=== PATIENT | male | born 1960 | race Hispanic/Latino ===

== ENCOUNTER 2022-12-12 08:51 | Day surgery (SDC) | payer BC ==
--- NOTE | 2022-12-08 17:35 | EKG ---
Test Date: 2022-12-08 Test Time: 11:25:38 Senior Compliance Analyst: FRANCIS MEASUREMENT RESULTS: Intervals: Rate: 62 [place]: 180 QRSD: 88 QT: 416 QTc: 422 [place]: P: 54 [place]: 180 QRS: -21 T: 23 INTERPRETIVE STATEMENTS: Sinus rhythm with occasional premature ventricular complexes Nonspecific ST abnormality Abnormal ECG No previous ECG available for comparison Electronically Signed On 12-08-22 17:34:46 CDT by Derik Moseley
[2022-12-12] MEDS ORDERED: OXYMETAZOLINE HCL 0.05% 15ML NAS ONE (09:04)
[2022-12-12] MEDS ORDERED: LIDOCAINE 2% MPF 5 ML VIAL ONE (09:14)
[2022-12-12] MEDS ORDERED: dexAMETHasone 10 MG/ML VIAL ONE (09:14)
[2022-12-12] MEDS ORDERED: KETOROLAC 30 MG/ML INJ ONE (09:14)
[2022-12-12] MEDS ORDERED: ONDANSETRON 4 MG/2 ML VIAL ONE (09:14)
[2022-12-12] MEDS ORDERED: propofoL 200 MG/20 ML VIAL IV ONE (09:14)
[2022-12-12] MEDS ORDERED: FENTANYL CITR 100 MCG/2 ML ONE ×2 (09:14→10:29)
[2022-12-12] MEDS ORDERED: MIDAZOLAM HCL 2 MG/2 ML INJ ONE (09:14)
[2022-12-12] MEDS ORDERED: NA CHLORIDE 0.9% 1,000 ML ONE ×2 (09:30→11:38)
[2022-12-12] MEDS ORDERED: NA CHLORIDE 0.9% 0 ML ONE (09:32)
[2022-12-12] MEDS ORDERED: LIDOCAINE 1% W/EPI 1:100,000 10 ML VIAL ONE (09:32)
[2022-12-12] MEDS: OXYMETAZOLINE HCL 0.05% 15ML NAS ONE ×3 (09:43→10:29)
[2022-12-12] MEDS ORDERED: GLYCOPYRROLATE 0.2 MG/ML SYR ONE (11:06)
[2022-12-12] MEDS ORDERED: BACITRACIN OINTMENT 14 GM TUBE TOP ONE (11:22)
[2022-12-12] MEDS ORDERED: TRAMADOL HCL 50 MG TAB ONE (14:27)
[2022-12-12 14:32] VITALS: BP 151/85; TEMP 97.1; O2SAT 95
--- NOTE | 2022-12-12 15:12 | P.OP ---
Date of Service: 12/12/22 Preoperative Diagnosis: [Chronic maxillary sinusitis] [, chronic ethmoid sinusitis] [, chronic frontal sinusitis] [, chronic sphenoid sinusitis] [, nasal obstruction] [, septal deviation] [, inferior turbinate hypertrophy] Postoperative diagnosis: Same, with nasal polyps Procedure: Nasal endoscopy with bilateral total ethmoidectomy and sphenoidotomy, bilateral frontal sinusotomy, bilateral maxillary antrostomy, septoplasty, submucosal cauterization of inferior turbinates Surgeon: Christina Wolfe MD Market Sales Manager: None Indication for procedure: The patient presented with symptoms of chronic rhinosinusitis. He was treated with maximal medical therapy and underwent a posttreatment CT scan that demonstrated a small residual amount of fluid in the bilateral maxillary sinus with partial opacification of the bilateral anterior and posterior ethmoid sinuses with opacification of the frontal recess and obstruction of the sphenoethmoid recess with associated right septal deviation and turbinate hypertrophy. The patient initially elected for a period of observation but due to continued and persistent symptoms he elected to proceed with surgery. The risks, benefits, and alternatives to surgical procedure were discussed with the patient and/or family and they agreed to proceed. Surgical findings: Right septal deviation. Polyps within the bilateral sphenoethmoid recess. Polyps within the ethmoid sinuses. Polyp and polypoid swelling within the frontal recess. Left maxillary sinus with depressed/healed orbital floor fracture. Left disruption of lamina papyracea with extrusion of orbital fat into the posterior ethmoid region. No restriction of left globe movement with forced duction testing under general anesthesia. After emergence from anesthesia, the patient had normal and full extraocular movements with no complaints of double vision. IV Fluids: Crystalloid Implants/Packing: Propel contour to the bilateral frontal recess, propel to the bilateral ethmoid. Posisep to the bilateral ethmoid Estimated Blood Loss: 50ml Complications: Unexpected left ethmoid orbital fat, suspect remote injury as significant factor Description of procedure in detail: The patient was brought to the operating room. They were placed under general anesthesia via oral endotracheal tube. The head of bed was turned 90 degrees. The nasal hairs were trimmed. The nasal cavity was examined with the nasal speculum and headlight with the following findings: Significant right septal deviation, good decongestion of inferior turbinates. The nasal cavity was packed with Afrin-soaked pledgets in preparation for the procedure. The patient was draped in a standard fashion for nasal surgery. [Based on the surgical plan and preoperative findings, intraoperative CT navigation was required. The preoperative CT scan was loaded into the Lingohubis device. The registration dongle was applied with adhesive to the britt ent's forehead. The electromagnetic device was secured to the operating room bed and evaluation to limit interference was confirmed. The registration handpiece was used to perform patient registration in accordance with perioperative manager's instructions including tracing over the course of the external nose and bilateral forehead and cheeks. Accuracy of the registration was confirmed with [id number] matching at the base of the columella, the radix, and the bilateral medial and lateral canthi. Accuracy was felt to be very good.] A 0 degree endoscope was then used to perform a nasal endoscopy with notable findings of very narrow right nasal cavity. Narrow middle meatus but no polyps visualized initially. Photo documentation was obtained. The left nasal cavity was visualized using a 0 degree endoscope and the middle turbinate was carefully medialized using a Libby elevator. The middle meatus was packed with Afrin-soaked pledget for several minutes. The maxillary seeker, backbiter, and 90 degree Blakesley were then used to remove the uncinate process; a 30 degree endoscope and Blakesley's were then used to create and enlarge the maxillary antrostomy. Visible through the antrostomy was a bulge that appeared to be coming from the roof of the maxillary sinus. This was consistent with preoperative CT findings suggestive of a previously untreated orbital blowout fracture. Care was taken to avoid damage to this area. A 0 degree endoscope was then used to address the ethmoid sinuses. A curette and 45 degree Blakesley were used to remove the ethmoid bulla and anterior partitions. There was polypoid mucosa noted within the ethmoid cavity. During dissection along the lamina, it was noted that there was a yellowish material. Prior to manipulation the left globe was carefully palpated which allowed me to confirm this yellow material was consistent with orbital fat. Given the patient's history of significant orbital injury remotely, I suspected prior trauma was a factor in this finding. Great care was taken to avoid excessive manipulation or traction on the fat during further dissection. The 30 degree endoscope was then used for better visualization of the skull base. The precision pointer was used to assist in identification and safe dissection along the skull base going up towards the frontal recess. The precision pointer was used to confirm proper entrance through the posterior ethmoids. The 70 degree endoscope, front to back giraffe forceps, and 90 degree Blakesley were then used to visualize and dissect within the frontal recess until the frontal sinus was visualized. Afrin-soaked packing was applied into the ethmoid region and attention was turned to the sphenoid. A 0 degree endoscope was used to perform a nasal endoscopy and the frontal rec ess was explored. Polyps and polypoid swelling was removed from the sphenoethmoid recess using a straight Blakesley. The balloon dilation device was then used to cannulate, dilate and ensure adequate opening into the left sphenoid sinus. Attention was turned to the right side but the nasal cavity was felt to be overly narrow to allow adequate dissection therefore the septoplasty was next addressed. The septum was injected with approximately 3 mL of 1% lidocaine with epinephrine. A left hemitransfixion incision was made through the nasal mucosa using a 15 blade and small nasal speculum. A Mejia elevator was used to dissect in the sub perichondrial plane elevating the mucosa from the right and left side of the septal cartilage. Elevation was continued posteriorly over the bony portion of the septum. A 15 blade was then used to make an incision through the cartilage leaving a 1.5 cm L strut both caudally and cranially to allow adequate support of the nose. The cartilage was removed using a Juan forcep after carefully loosening further soft tissue attachments with the caudal elevator. The heavy scissors and Smith rongeurs were used to remove the deviated portions of the bony septum including the septal spur near the floor of the nose. Removal of this bone and cartilage allowed for adequate mobilization of the palate in order to proceed with the right-sided sinus surgery. Closure of the incision was delayed until the termination of the case. The right nasal cavity was visualized using a 0 degree endoscope and the middle turbinate was carefully medialized using a Libby elevator. The middle meatus was packed with Afrin-soaked pledgets for several minutes. The maxillary seeker, backbiter and 90 degree Blakesley were then used to remove the uncinate process. A 30 degree endoscope and Blakesley were used to create an enlarging the maxillary antrostomy. There was moderate bleeding in this area which was controlled by packing with Afrin-soaked cottonoids for several minutes. After removal a small amount of bipolar electrocautery was applied for further hemostasis. The 0 degree endoscope was used to address the ethmoid sinuses. A curette and 45 degree Blakesley were used to remove the ethmoid bulla and anterior and posterior partitions. There was some polypoid and small polyps noted within the ethmoid cavity. There was no evidence of injury or damage to the lamina. Dissection was taken back to the posterior ethmoids and then carried out anteriorly along the skull base with the assistance of the 30 degree endoscope and the [employer] pointer image guidance system. The frontal recess was identified with the precision pointer and visualized with a 70 degree endoscope. Front to back giraffe and small side to side giraffe forceps were used to remove polyps and polypoid tissue from this region. After adequate removal, Afrin-soaked pledgets were applied. The 0 degree endoscope was then used to visualize the sphenoethmoid recess. Moderate sized polyps were removed from this area using a straight Blakesley. The balloon dilation device was used to cannulate, dilate and ensure adequate opening into the right sphenoid sinus. After removal and confirmation of pledgets, a propel contour was placed under 70 degree endoscopic guidance into the right and left frontal recess. A propel steroid eluding stent was then placed within the right and left ethmoid sinus. A Posisep dissolvable sinus dressing was divided in half with one half placed in each of the ethmoid sinuses and thoroughly soaked with saline. And final endoscopic view of the sinuses appeared to have good hemostasis. A unprotected needlepoint Bovie was used to perform intramural cauterization of the bilateral inferior turbinates for reduction of the bulk of tissue to aid in opening of the nasal airway. 2 passes were made in each of the turbinates. The left hemitransfixion incision was then closed in a running fashion using 5-0 plain gut suture. A 4-0 chromic suture on a Shola needle was used to apply quilting sutures to the septum to approximate the septum to the cartilage and reduce risk of septal hematoma. A small mucosal laceration was noted posteriorly on the right side but was not felt to be of significant risk in regards to perforation. Decision to avoid placement of septal splints was made in the interest of allowing adequate irrigation of the sinuses during the early perioperative period. Following completion of the surgery, a patient forcep was used to grasp the lateral conjunctiva of the left eye and forced duction testing was performed. There was no discernible limitation in regards to movement of the eye. At the conclusion of the procedure, all pledget counts were confirmed correct. The patient was returned to care of anesthesia for awakening extubation in the operating room which proceeded without difficulty. The patient was transported to the recovery room and will be discharged home later today in the care of their family. The patient is given written and verbal instructions regarding the importance of saline irrigations and nasal precautions.
== END 2022-12-12 15:04 | disposition home or self-care (01) ==
LOC: OR 08:51
PROVIDERS: ATTEND Otolaryngology
PROC: 099Q8ZZ Drainage of Right Maxillary Sinus, Via Natural or Artificial Opening Endoscopic (ICD-10-PCS; 2022-12-12)
PROC: 09TL8ZZ Resection of Nasal Turbinate, Via Natural or Artificial Opening Endoscopic (ICD-10-PCS; 2022-12-12)
PROC: 09BT8ZZ Excision of Left Frontal Sinus, Via Natural or Artificial Opening Endoscopic (ICD-10-PCS; 2022-12-12)
PROC: 09BS8ZZ Excision of Right Frontal Sinus, Via Natural or Artificial Opening Endoscopic (ICD-10-PCS; 2022-12-12)
PROC: 09BV8ZX Excision of Left Ethmoid Sinus, Via Natural or Artificial Opening Endoscopic, Diagnostic (ICD-10-PCS; 2022-12-12)
PROC: 09BW8ZX Excision of Right Sphenoid Sinus, Via Natural or Artificial Opening Endoscopic, Diagnostic (ICD-10-PCS; 2022-12-12)
PROC: 09BX8ZX Excision of Left Sphenoid Sinus, Via Natural or Artificial Opening Endoscopic, Diagnostic (ICD-10-PCS; 2022-12-12)
PROC: 09B Ear, Nose, Sinus, Excision (ICD-10-PCS; 2022-12-12)
PROC: 09SM0ZZ Reposition Nasal Septum, Open Approach (ICD-10-PCS; 2022-12-12)
PROC: 09BT8ZZ Excision of Left Frontal Sinus, Via Natural or Artificial Opening Endoscopic (ICD-10-PCS; 2022-12-12)
PROC: 09BS8ZZ Excision of Right Frontal Sinus, Via Natural or Artificial Opening Endoscopic (ICD-10-PCS; 2022-12-12)
PROC: 099R8ZZ Drainage of Left Maxillary Sinus, Via Natural or Artificial Opening Endoscopic (ICD-10-PCS; principal; 2022-12-12 10:30)
DX: J32.0 Chronic maxillary sinusitis (principal); J32.1 Chronic frontal sinusitis; J32.3 Chronic sphenoidal sinusitis; R09.81 Nasal congestion; J32.2 Chronic ethmoidal sinusitis; J34.3 Hypertrophy of nasal turbinates; J34.2 Deviated nasal septum; J34.89 Other specified disorders of nose and nasal sinuses; J33.8 Other polyp of sinus
CPT/HCPCS: 31256; 61782; 30520; 30802; 31276; 31257; 93005; 82947 ×2; 88305; 88311; J2704; J2001; J2250; J3010 ×2; J1100; J2405; J7030 ×2; J7050